=== PATIENT | male | born 2000 | race Caucasian/White ===

== ENCOUNTER 2021-12-27 08:38 | Emergency (ER) | payer MEDICARE, MEDICAID ==
[~2021-12-27] VITALS: Ht 154.9 cm; Wt 46.9 kg
[2021-12-27] MEDS ORDERED: HYDROmorphone 2 MG/ML INJ. IM ONE (09:00)
[2021-12-27] MEDS ORDERED: HYDROmorphone 2 MG/ML INJ. IVP ONE (09:15)
--- NOTE | 2021-12-27 09:27 | PHYS DOC ---
Past Medical History Additional Past Medical Histor: DOWNS SYNDROME, MILD HEART MURMUR Past Surgical History: Other Additional Past Surgical Histo: EAR TUBES, THORACIC BAND REPAIR General Adult EDM: Chief Complaint: KNEE INJURY HPI: HPI: Patient is a 21 year old male who presents with left knee dislocation. Patient has a history of Down syndrome and autism, he was found in his room this morning crying. Mother found left knee abnormality and called EMS. He was given 50 mcg of fentanyl prior to arrival. Review of Systems: Review of Systems: Cannot obtain review of systems due to mental status, patient has Down syndrome. Heart Score: C/O Chest Pain: No Risk Factors: Risk Factors: DM, Current or recent (<one month) smoker, HTN, HLP, family history of CAD, obesity. Risk Scores: Score 0 - 3: 2.5% MACE over next 6 weeks - Discharge Home Score 4 - 6: 20.3% MACE over next 6 weeks - Admit for Clinical Observation Score 7 - 10: 72.7% MACE over next 6 weeks - Early Invasive Strategies Current Medications: Current Medications Medications (Trade) Dose Ordered Sig/Rian Start Time Stop Time Status Last Admin Dose Admin Hydromorphone HCl (Dilaudid) 0.5 mg 1X ONCE 12/27/21 09:15 12/27/21 09:16 DC Allergies: Allergies: Allergies Coded Allergies Type Severity Reaction Last Updated Verified carrot Allergy Intermediate 12/27/21 Yes strawberry Allergy Unknown REPORTED "BERRIES" 12/27/21 Yes Physical Exam: PE: Constitutional: Thin, no acute distress, non-toxic appearance. [] HENT: Normocephalic, atraumatic, bilateral external ears normal, oropharynx [address], no oral exudates, nose normal. [] Eyes: PERRLA, EOMI, conjunctiva normal, no discharge. [] Neck: Normal range of motion, no tenderness, supple, no stridor. [] Cardiovascular:Heart rate regular rhythm, no murmur [] Lungs & Thorax: Bilateral breath sounds clear to auscultation [] Abdomen: Bowel sounds normal, soft, no tenderness, no masses, no pulsatile masses. [] Skin: Warm, dry, no erythema, no rash. [] Back: No tenderness, no CVA tenderness. [] Extremities: Obvious left knee dislocation with lateral deviation of the patella [] Neurologic: Alert and at baseline, normal motor function, normal sensory function, no focal deficits noted. [] Current Patient Data: Vital Signs: Vital Signs Date Time Temp Pulse Resp B/P (MAP) Pulse Ox O2 Delivery O2 Flow Rate FiO2 12/27/21 08:38 60 18 122/75 (91) Room Air EKG: EKG: [] Radiology/Procedures: Radiology/Procedures: Left knee x-ray with lateral patella dislocation Postreduction x-ray shows good alignment [] Patella reduced by myself, knee was extended with gentle pressure on the lateral side of the patella. Good reduction. Patient tolerated the procedure well. Impression: Left patellar dislocation Course & Med Decision Making: Course & Med Decision Making Pertinent Labs and Imaging studies reviewed. (See chart for details) 21-year-old male with history of Down syndrome and autism seen and examined by myself. Patellar dislocation reduced at bedside. Patient had good outcome. X- ray to confirm relocation. Good neurovascular exam after relocation. Patient given a knee brace. Patient given instructions to follow-up with primary care physician. May need to speak to physical therapist who already works with patient about knee strengthening exercises. Mother agreed with plan of care. Jovita Disclaimer: Jovita Disclaimer: This electronic medical record was generated, in whole or in part, using a voice recognition dictation system. Departure Departure Impression: Primary Impression: Dislocation of left patella Disposition: 01 HOME / SELF CARE / HOMELESS Condition: GOOD Patient Instructions: Patellar Dislocation, [id number] Additional Instructions: Follow-up with your primary care physician in 2 to 4 weeks You may use the knee brace to help stabilize the patella You can come back to the emergency department if you are having similar symptoms of knee dislocation Speak to your physical therapist about this condition, they may recommend specific exercises for patella strengthening LOUIS ASHTON MD December 27, 2021 09:27
--- NOTE | 2021-12-27 09:32 | RAD ---
Left knee 2 views: Reason for examination: Dislocation. Unable to straighten leg for AP view. 2 views of the right knee were obtained. Examination is limited by the positioning. No gross fracture is evident. The patella appears to be intact but on the anterior view obtained the patella may be displaced laterally. Bone density is normal. No abnormal periosteal reaction is seen. No joint effusion is evident. IMPRESSION: Limited examination by the images obtained. No definite fracture however the patella appears to be displaced laterally on the single anterior vie w obtained. Electronically signed by: Shari Flanagan MD (12/27/2021 9:29 AM) MARY
--- NOTE | 2021-12-27 09:49 | RAD ---
EXAM: Left knee, 3 views. HISTORY: Closed reduction of dislocation. COMPARISON: 12/27/2021 FINDINGS: 3 views of the left knee are obtained. There is no fracture, dislocation or subluxation. Th ere is a small knee effusion. IMPRESSION: Closed reduction to anatomic alignment. Small knee effusion. Electronically signed by: Kathrin Ortiz MD (12/27/2021 9:47 AM) [id number]
[2021-12-27 10:19] VITALS: BP 116/51
== END 2021-12-27 10:19 | disposition home or self-care (01) ==
LOC: ER 08:38
DX: S83.005A Unspecified dislocation of left patella, initial encounter (principal); F84.0 Autistic disorder; Z91.018 Allergy to other foods; X58.XXXA Exposure to other specified factors, initial encounter; Y93.89 Activity, other specified; Y92.89 Other specified places as the place of occurrence of the external cause; Y99.8 Other external cause status
CPT/HCPCS: 27562; 73560; 73562; 99284